=== PATIENT | male | born 1985 | race Two or more races ===

== ENCOUNTER 2023-08-10 04:24 | Day surgery (SDC) | payer OTHER ==
[2023-08-07 09:40] VITALS: BMI 30.3
[2023-08-10] MEDS ORDERED: BUPIVACAINE HCL/PF 0.25% (2.5MG/ML) 10 ML VIAL ONE (12:42)
[2023-08-10] MEDS ORDERED: PAPAVERINE HCL 30 MG/1 ML 10 ML VIAL NR ONE (12:42)
[2023-08-10] MEDS ORDERED: IBUPROFEN 800 MG/8 ML IJ IVPB PRN (14:02)
[2023-08-10] MEDS ORDERED: ACETAMINOPHEN 1000 MG/100 ML BAG IVPB ONE (14:03)
[2023-08-10] MEDS ORDERED: PROPOFOL 40 ML ONE (14:04)
[2023-08-10] MEDS ORDERED: MIDAZOLAM HCL 2 MG/2 ML SINGLE DOSE VIAL ONE (14:05)
[2023-08-10] MEDS ORDERED: FENTANYL CITRATE/PF 50 MCG/ML VIAL ONE ×3 (14:07→15:32)
[2023-08-10] MEDS ORDERED: DEXTROSE 5%-0.45% SALINE 1,000 ML IV SCH (14:15)
[2023-08-10] MEDS: ceFAZolin SODIUM 1 GM VIAL IVPB ONE ×2 (14:16→14:17)
[2023-08-10] MEDS ORDERED: SODIUM CHLORIDE 0.9% P/F 10 ML VIAL IJ ONE (14:16)
[2023-08-10] MEDS ORDERED: ceFAZolin SODIUM 1 GM VIAL ONE (14:16)
[2023-08-10] MEDS: BUPIVACAINE HCL/PF 0.25% (2.5MG/ML) 10 ML VIAL IJ ONE ×2 (14:20→15:11)
[2023-08-10] MEDS ORDERED: DEXAMETHASONE SOD PHOSPHATE 4 MG/1 ML VIAL ONE (14:20)
[2023-08-10] MEDS ORDERED: ONDANSETRON 4 MG/2 ML VIAL ONE (14:20)
[2023-08-10] MEDS ORDERED: PROMETHAZINE HCL 25 MG/1 ML VIAL IVPB PRN (15:20)
[2023-08-10] MEDS ORDERED: oxyCODONE HCL 5 MG TABLET PO PRN (15:20)
[2023-08-10] MEDS ORDERED: ONDANSETRON 4 MG/2 ML VIAL IVPUSH PRN (15:20)
[2023-08-10] MEDS ORDERED: LACTATED RINGERS SOLUTION 1,000 ML IV SCH (15:30)
[2023-08-10] MEDS: IBUPROFEN 800 MG/8 ML IJ IVPB ONE (15:37)
[2023-08-10] MEDS: oxyCODONE HCL 5 MG TABLET PO PRN (16:59)
[2023-08-10] MEDS ORDERED: oxyCODONE HCL 10 MG SUSTAINED ACTING TABLET ONE (17:00)
[2023-08-10 17:27] VITALS: RESP 20; TEMP 97.5
[2023-08-10 18:36] VITALS: BP 129/78; PULSE 78
== END 2023-08-10 18:39 | disposition home or self-care (01) ==
LOC: JASU-SURG 04:24
PROVIDERS: ATTEND Urology
PROC: 0VBH0ZZ Excision of Bilateral Spermatic Cords, Open Approach (ICD-10-PCS; principal; 2023-08-10 14:00)
DX: I86.1 Scrotal varices (principal)
CPT/HCPCS: 88304-TC; 94760